=== PATIENT | female | born 1965 | race Native Hawaiian/Other Pacific Islander ===

== ENCOUNTER 2017-02-26 09:51 | Emergency (ER) | payer OTHER ==
[~2017-02-26] VITALS: Ht 157.5 cm; Wt 64.4 kg
[2017-02-26 10:30] VITALS: TEMP 98
[2017-02-26] MEDS ORDERED: RISPERDAL3 MG PO (10:45)
[2017-02-26] MEDS ORDERED: ZANTAC300 MG PO (10:45)
[2017-02-26] MEDS ORDERED: CELEXA40 MG PO (10:45)
[2017-02-26] MEDS ORDERED: BENZTROPINE0.5 MG PO (10:47)
[2017-02-26] MEDS ORDERED: IRON325 MG OR (10:47)
[2017-02-26] MEDS ORDERED: PROP60CA9 PO (10:48)
[2017-02-26] MEDS ORDERED: LISI20TA11 PO (10:48)
[2017-02-26 12:24] LABS: PLATELET COUNT 326 K/uL (152-353)
[2017-02-26 12:30] LABS: POTASSIUM 4.2 mmol/L (3.6-5.2); SODIUM 134 mmol/L (136-145)
[2017-02-26 15:09] VITALS: BP 126/82
== END 2017-02-26 15:09 | disposition home or self-care (01) ==
LOC: ED 09:51
PROVIDERS: Specialist
DX: J20.9 Acute bronchitis, unspecified (principal); B96.89 Other specified bacterial agents as the cause of diseases classified elsewhere; J44.9 Chronic obstructive pulmonary disease, unspecified
CPT/HCPCS: 36415; 36600; 80053; 82805; 83605; 85027; 99283